=== PATIENT | male | born 1985 | race Caucasian/White ===

== ENCOUNTER 2023-03-21 10:52 | Observation (INO) ==
[2023-03-21] MEDS ORDERED: IOPAMIDOL 100 ML BOTTLE IV ONE (10:53)
[2023-03-21] MEDS: ONDANSETRON 4 MG/2 ML VIAL IV ONE ×2 (11:39→13:06)
[2023-03-21] MEDS: 0.9 % SODIUM CHLORIDE 1,000 ML IV ONE (11:39)
[2023-03-21] MEDS: morphine 2 MG/ML VIAL IV ONE (11:39)
[2023-03-21 12:01] LABS: Basophils # (Auto) 0.04 K/mcL (0.00-0.30); Basophils % (Auto) 0.8 % (0.0-2.0); Eosinophils # (Auto) 0.09 K/mcL (0.00-0.70); Eosinophils % (Auto) 1.9 % (0.0-7.0); Hematocrit 46.6 % (40.1-51.0); Hemoglobin 16.3 g/dL (13.7-17.5); Lymphocytes % (Auto) 23.2 % (15.5-49.0); Mean Cell Volume 87.1 fL (80.0-100.0); Mean Platelet Volume 11.7 fL (8.8-12.5); Monocytes # (Auto) 0.45 K/mcL (0.10-0.90); Monocytes % (Auto) 9.5 % (1.0-12.0); Neutrophils % (Auto) 64.4 % (38.0-78.0); Platelet Count 166 K/mcL (140-440); RBC 5.35 M/mcL (4.63-6.08); WBC 4.8 K/mcL (4.5-11.0)
[2023-03-21 12:37] LABS: ALT/SGPT 33 U/L (<40); AST/SGOT 42 U/L (<40); Albumin 4.6 gm/dL (3.2-5.2); Alkaline Phosphatase 79 U/L (39-117); Bilirubin,Total 0.7 mg/dL (0.1-1.0); Blood Urea Nitrogen 12 mg/dL (6-20); Calcium 9.5 mg/dL (8.6-10.4); Carbon Dioxide 23 mmol/L (22-30); Chloride 102 mmol/L (96-108); Globulin 2.3 gm/dL (2.2-3.7); Glomerular Filtration Rate 95; Glucose 99 mg/dL (70-105)
[2023-03-21 12:56] LABS: Appearance,Urine Clear (Clear); Bilirubin,Urine Negative (Negative); Color,Urine Light yellow; Culture Indicated,Urine No; Glucose,Urine (UA) Negative (Negative); Ketones,Urine Negative (Negative); Leukocyte Esterase,Urine Negative /uL (Negative); Nitrate,Urine Negative (Negative); Protein,Urine Negative (Negative); Specific Gravity,Urine 1.015 (1.000-1.035); Urine Blood Negative ery/mcL (Negative); Urobilinogen,Urine Normal
[2023-03-21] MEDS: fentaNYL 100 MCG/2 ML VIAL IV ONE (13:06)
[2023-03-21] MEDS: LACTATED RINGERS 1,000 ML IV SCH (16:32)
[2023-03-21] MEDS: morphine 2 MG/ML VIAL IV PRN (16:32)
[2023-03-21] MEDS: ONDANSETRON 4 MG/2 ML VIAL IV PRN (17:51)
[2023-03-21] MEDS: 0.9 % SODIUM CHLORIDE 1,000 ML IV SCH (19:04)
[2023-03-21 19:16] LABS: INR 0.9 (0.9-1.1); Prothrombin Time 13.2 sec (11.9-14.5)
[2023-03-21] MEDS: PIPERACILLIN SODIUM/TAZOBACTAM 3.375 GM in DEXTROSE 5% IN WATER 50 ML IV ONE (19:50)
[2023-03-22] MEDS: HYDROmorphone 1 MG/ML SYRINGE IV PRN (00:04)
[2023-03-22] MEDS: PIPERACILLIN SODIUM/TAZOBACTAM 3.375 GM in DEXTROSE 5% IN WATER 100 ML IV SCH (00:05)
[2023-03-22 05:45] LABS: Basophils # (Auto) 0.03 K/mcL (0.00-0.30); Basophils % (Auto) 0.6 % (0.0-2.0); Eosinophils # (Auto) 0.11 K/mcL (0.00-0.70); Eosinophils % (Auto) 2.1 % (0.0-7.0); Hematocrit 45.4 % (40.1-51.0); Hemoglobin 15.4 g/dL (13.7-17.5); Lymphocytes # (Auto) 1.31 K/mcL (1.50-4.80); Lymphocytes % (Auto) 25.1 % (15.5-49.0); Mean Cell Volume 89.5 fL (80.0-100.0); Mean Corpuscular HGB Conc 33.9 g/dL (31.0-36.0); Mean Platelet Volume 11.1 fL (8.8-12.5); Monocytes # (Auto) 0.55 K/mcL (0.10-0.90); Monocytes % (Auto) 10.5 % (1.0-12.0); Neutrophils % (Auto) 61.7 % (38.0-78.0); Platelet Count 148 K/mcL (140-440); RBC 5.07 M/mcL (4.63-6.08); Red Cell Distribution Width 13.4 % (11.5-14.5); WBC 5.2 K/mcL (4.5-11.0)
[2023-03-22] MEDS: ACETAMINOPHEN 1,000 MG/100 ML BAG IV SCH (05:50)
[2023-03-22] MEDS: ACETAMINOPHEN 1,000 MG/100 ML BAG IV ONE (05:57)
[2023-03-22] MEDS ORDERED: ACETAMINOPHEN 1,000 MG/100 ML BAG IV PRN (06:00)
[2023-03-22 06:07] LABS: ALT/SGPT 28 U/L (<40); AST/SGOT 32 U/L (<40); Albumin 4.1 gm/dL (3.2-5.2); Albumin/Globulin Ratio 2.1 (1.0-2.3); Alkaline Phosphatase 65 U/L (39-117); Bilirubin,Direct 0.2 mg/dL (<0.3); Bilirubin,Total 1.2 mg/dL (0.1-1.0); Blood Urea Nitrogen 13 mg/dL (6-20); Calcium 8.9 mg/dL (8.6-10.4); Carbon Dioxide 27 mmol/L (22-30); Chloride 104 mmol/L (96-108); Glomerular Filtration Rate 69; Glucose 91 mg/dL (70-105); Lactate Dehydrogenase 139 U/L (135-225); Phosphorous 2.9 mg/dL (2.5-4.5); Triglycerides 339 mg/dL (<150); Uric Acid 5.1 mg/dL (2.5-8.0)
[2023-03-22] MEDS: PANTOPRAZOLE 40 MG VIAL IV SCH (07:18)
[2023-03-22] MEDS: METOCLOPRAMIDE 10 MG/2 ML VIAL IV SCH (07:18)
[2023-03-22] MEDS: SCOPOLAMINE 1 PATCH PATCH TOPICAL ONE (07:25)
[2023-03-22] MEDS ORDERED: fentaNYL 100 MCG/2 ML VIAL ONE (10:46)
[2023-03-22] MEDS ORDERED: PROPOFOL 200 MG/20 ML VIAL IV ONE (10:46)
[2023-03-22] MEDS ORDERED: ONDANSETRON 4 MG/2 ML VIAL ONE (10:46)
[2023-03-22] MEDS ORDERED: ROCURONIUM 10 MG/ML ML IV ONE (10:46)
[2023-03-22] MEDS ORDERED: GLYCOPYRROLATE 0.2 MG/ML VIAL IV ONE (11:38)
[2023-03-22] MEDS ORDERED: IPRATROPIUM/ALBUTEROL 3 ML AMPUL.NEB NEB PRN (11:40)
[2023-03-22] MEDS ORDERED: HYDROmorphone 0.5 MG/0.5 ML SYRINGE IV PRN (11:40)
[2023-03-22] MEDS ORDERED: NALOXONE HCL 0.4 MG/ML VIAL IV PRN (11:40)
[2023-03-22] MEDS ORDERED: ONDANSETRON 4 MG/2 ML VIAL IV PRN (11:40)
[2023-03-22] MEDS ORDERED: FLUMAZENIL 0.1 MG/ML ML IV PRN (11:40)
[2023-03-22] MEDS ORDERED: SUGAMMADEX SODIUM 200 MG/2 ML VIAL IV ONE (11:52)
[2023-03-22] MEDS: fentaNYL 100 MCG/2 ML VIAL IV PRN ×2 (12:34→22:50)
[2023-03-23 06:16] LABS: Basophils # (Auto) 0.02 K/mcL (0.00-0.30); Basophils % (Auto) 0.4 % (0.0-2.0); Eosinophils # (Auto) 0.02 K/mcL (0.00-0.70); Eosinophils % (Auto) 0.4 % (0.0-7.0); Hematocrit 39.6 % (40.1-51.0); Hemoglobin 13.1 g/dL (13.7-17.5); Lymphocytes # (Auto) 0.66 K/mcL (1.50-4.80); Lymphocytes % (Auto) 11.8 % (15.5-49.0); Mean Cell Volume 92.1 fL (80.0-100.0); Mean Corpuscular HGB Conc 33.1 g/dL (31.0-36.0); Mean Platelet Volume 11.4 fL (8.8-12.5); Monocytes # (Auto) 0.61 K/mcL (0.10-0.90); Monocytes % (Auto) 10.9 % (1.0-12.0); Neutrophils % (Auto) 76.3 % (38.0-78.0); Platelet Count 141 K/mcL (140-440); Red Cell Distribution Width 13.7 % (11.5-14.5); WBC 5.6 K/mcL (4.5-11.0)
[2023-03-23 06:51] LABS: ALT/SGPT 25 U/L (<40); AST/SGOT 33 U/L (<40); Albumin 3.9 gm/dL (3.2-5.2); Albumin/Globulin Ratio 2.1 (1.0-2.3); Alkaline Phosphatase 63 U/L (39-117); Bilirubin,Direct 0.3 mg/dL (<0.3); Bilirubin,Total 1.5 mg/dL (0.1-1.0); Blood Urea Nitrogen 14 mg/dL (6-20); Calcium 8.5 mg/dL (8.6-10.4); Carbon Dioxide 23 mmol/L (22-30); Chloride 103 mmol/L (96-108); Globulin 1.9 gm/dL (2.2-3.7); Glomerular Filtration Rate 69; Glucose 86 mg/dL (70-105); Lactate Dehydrogenase 152 U/L (135-225); Phosphorous 2.6 mg/dL (2.5-4.5); Triglycerides 163 mg/dL (<150); Uric Acid 3.5 mg/dL (2.5-8.0)
== END 2023-03-23 13:45 | disposition home or self-care (01) ==
LOC: ED 10:52 → MEDSUR 10:52
PROVIDERS: ADMIT Family Medicine Adult Medicine; ATTEND Family Medicine Adult Medicine
PROC: LAPAPPY (ICD-10-PCS; 2023-03-22 11:05)